=== PATIENT | male | born 2000 | race Caucasian/White ===

== ENCOUNTER 2021-12-29 08:51 | Outpatient (CLI) | payer OTHER, SELFPAY ==
--- NOTE | 2022-01-11 20:37 | WPDSLEEPSTUD ---
Sleep Study Date of Study: 12/29/21 Ordering Provider: Milagros Canela DO Interpreting Physician: Kary Maciel DO Sleep Study Type: Split Polysomnogram Height: 1.91 m Weight: 152.861 kg Body Mass Index: 42.1 Neck Circumference (inches): 20 [place]: 6 Reason for Sleep Study Loud snoring Sleep History The patient is a 21 year old male had a sleep study ordered by his primary care for evaluation of sleep apnea. 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 The patient denies awakening from sleep short of breath. he rarely awakens at night with heartburn, belching cough. Constantly snores loud enough that others complain. He constantly has trouble sleeping when he has a cold. He denies waking up gasping for air throughout the night. He rarely has breathing problems at night observed by himself or others. He rarely sweats excessively at night. He denies having heart palpitations or irregular heartbeats during the night. He occasionally falls asleep during the day but never while driving. He denies sleep paralysis, cataplexy and hypnagogic / hypnopompic hallucinations. He denies having trouble at school or work due to sleepiness. He denies having nightmares. He denies remembering his dreams. He denies having thoughts racing through his mind. He occasionally feels sad or depressed. He frequently has anxiety. He occasionally has muscular tension. He rarely notices parts of his body jerk. He denies kicking during the night. He denies having crawling and aching feelings in his legs as well as leg pain during night he denies grinding his teeth during sleep and awakening with morning jaw pain. He is rarely by pain during the day and never awakened by pain during the. He constantly wakes up feeling stiff in the morning. He constantly wakes up with sore achy muscles. He constantly wakes up with pain in the neck, spine and other joints. He goes to bed at 9:30 p.m.. It takes him 1 hour fall asleep. He wakes up twice throughout the night to use the restroom, get a drink hand showed off electronics. He is able fall back asleep within 30 minutes. He wakes up at 7:30 a.m. weekdays and 9:30 a.m. weekends. he typically gets 8 hours of sleep per night. He will stay in bed for 30 minutes to an hour after waking up the morning. He does not consume any caffeinated beverages within 2 hours of bedtime. He will engage in physical exercise before bedtime. He will watch television before falling asleep. He does take naps in the afternoon or the evening. He will drink 1 caffeinated beverage per day. He will drink an alcoholic beverage on the weekend. He quit smoking cigarettes. He he denies recreational drug use. [facility] Past Medical History Medical History (Updated 01/11/22 @ 21:04 by Kary Maciel DO) JETT (obstructive sleep apnea) Social History Social History Smoking status: Former smoker Tobacco type: cigarettes Second hand tobacco smoke exposure: No Alcohol intake: current Substance use: current Substance use type: marijuana Gender identity (if verbalized by the patient): Male Sexual Orientation (if Verbalized by the Patient): Straight or Heterosexual Spiritual care concerns: No Agree to blood products: Yes Medications Home Medications Medication Instructions Recorded Confirmed Type triamcinolone acetonide 0.1 % 1 applic TOPICAL BID #30 g 09/17/21 12/15/21 Rx topical cream azithromycin 250 mg tablet See Rx Instructions PO .COMPLEX #6 12/15/21 12/15/21 Rx tablet fluticasone propionate 50 2 spray INTRANASAL DAILY #16 g 12/15/21 12/15/21 Rx mcg/actuation nasal spray,suspension [id number] 3.5 4 drp RIGHT EAR Q8H #10 ml 12/24/21 Rx mg-10,000 unit/mL-1 % ear drops,susp Sleep Procedure This test was performed using the [employer] multiple channel system including EOG, EEG, subm
[2022-01-11 21:06] VITALS: BMI 42.1
== END 2021-12-30 07:17 | disposition home or self-care (01) ==
LOC: ANHCSM 08:51
PROVIDERS: PCP Family Medicine; Visit Provider Family Medicine
DX: G47.33 Obstructive sleep apnea (adult) (pediatric) (principal)
CPT/HCPCS: 95811

== ENCOUNTER 2024-01-04 00:02 | Day surgery (SDC) | payer OTHER, SELFPAY ==
[2023-12-20 14:19] VITALS: BMI 41.3
[2024-01-04 07:52] VITALS: BP 141/106; PULSE 80; RESP 18; TEMP 36.2; O2SAT 98
[2024-01-04] MEDS: LACTATED RINGERS 1,000 ML 150 ML IV CONT (08:07)
--- NOTE | 2024-01-04 08:37 | P.PNAN_ITS ---
Anes - Initial Pre Proc Eval Procedure: Operation Date: 01/04/24 09:00 Proposed Procedures p Colonoscopy - Jacobo Kelley MD Date/Time: 01/04/24 08:37 Surgeon: Jacobo Kelley MD Pre Op Diagnosis: fam hx of colon polyps,Hemorrhage of anus and rect Patient Data Age: 23 Gender: M Height: 1.91 m Weight: 163 kg Last Vital Signs Temp 97.1 F L 01/04/24 07:52 Pulse 80 01/04/24 07:52 Resp 18 01/04/24 07:52 BP 141/106 H 01/04/24 07:52 Pulse Ox 98 01/04/24 07:52 O2 Del Method Room Air 01/04/24 07:52 Allergies Allergy/AdvReac Type Severity Reaction Status Date / Time No Known Allergies Allergy Verified 01/04/24 07:51 Home Medications Medication Instructions Recorded Confirmed Type losartan 50 mg-hydrochlorothiazide 1 tablet PO DAILY #90 tabs 07/19/23 01/04/24 Rx 12.5 mg tablet Patient hx anesthesia problems: none Family hx anesthesia problems: none Results Review: All pre-operative results and documents have been reviewed as part of the pre- operative evaluation. [facility] Past Medical History Medical History JETT (obstructive sleep apnea) Screening cholesterol level Family History Family History Father Colon polyp Social History Social History Smoking status: Former smoker Tobacco type: cigarettes Second hand tobacco smoke exposure: No Alcohol intake: current Drinks per week: 5 Substance use: current Substance use type: marijuana Do You Feel Safe in your Home?: Yes Lack of Transportation: No Lack of Food: Never True Current Housing: I Have Housing Concerned About Future Housing: No Difficulty Paying Gas/Electric Bills: No Difficulty Paying for Meds: No Currently Unemployed: No Education: Bachelor's Degree Difficulty w/ Childcare or Family Care: No Living arrangements: with friend(s) Occupation/Education: occupation Gender identity (if verbalized by the patient): Male Sexual Orientation (if Verbalized by the Patient): Straight or Heterosexual Spiritual care concerns: No Agree to blood products: Yes Margarita - Arash Final PreProcedure Day of Procedure 01/04/24 08:37 Patient weight: morbidly obese Heart: regular rate and rhythm Lungs: clear to auscultation Airway: Mallampati scale class II Neurological: alert and oriented Last oral intake: >/= 8 hours ASA classification: III Emergent: no Anesthetic plan: proceed Anesthesia type and monitoring: general GIVS and standard monitoring Results Review: All pre-operative results and documents have been reviewed as part of the pre- operative evaluation. Informed Consent: The patient's anesthetic plan and its attendant risks and benefits were discussed with the patient/family/POA. Questions were solicited and answers provided to the satisfaction of the patient/family/POA.
--- NOTE | 2024-01-04 09:01 | PM.HPGS ---
History of Present Illness History of Present Illness Consent: Risks, benefits, and alternatives have been discussed and questions answered. Patient agrees to proceed with procedure. Chief complaint: Hemorrhage of anus and rect Narrative: Freddie Olivares is a 23 year old male with intermittent hematochezia, never had colonoscopy Review of Systems Review of Systems: All systems reviewed & are unremarkable except as noted in HPI and below PMFSH Past Medical History Medical History JETT (obstructive sleep apnea) Screening cholesterol level Family History Family History Father Colon polyp Social History Social History Smoking status: Former smoker Tobacco type: cigarettes Second hand tobacco smoke exposure: No Alcohol intake: current Drinks per week: 5 Substance use: current Substance use type: marijuana Do You Feel Safe in your Home?: Yes Lack of Transportation: No Lack of Food: Never True Current Housing: I Have Housing Concerned About Future Housing: No Difficulty Paying Gas/Electric Bills: No Difficulty Paying for Meds: No Currently Unemployed: No Education: Bachelor's Degree Difficulty w/ Childcare or Family Care: No Living arrangements: with friend(s) Occupation/Education: occupation Gender identity (if verbalized by the patient): Male Sexual Orientation (if Verbalized by the Patient): Straight or Heterosexual Spiritual care concerns: No Agree to blood products: Yes Meds Home Medications and Allergies Home Medications Medication Instructions Recorded Confirmed Type losartan 50 mg-hydrochlorothiazide 1 tablet PO DAILY #90 tabs 07/19/23 01/04/24 Rx 12.5 mg tablet Allergies Allergy/AdvReac Type Severity Reaction Status Date / Time No Known Allergies Allergy Verified 01/04/24 07:51 Vital Signs Vital Signs - 24 hr 01/04/24 07:52 Temperature 97.1 F L Pulse Rate 80 Respiratory Rate 18 Blood Pressure 141/106 H Pulse Oximetry 98 Oxygen Delivery Room Air Exam Const: General: comfortable and no acute distress HENMT: Face/Nose/Sinus: Normal nares present Eyes: General: appearance normal, both eyes and all related structures Neck: Neck: no JVD Resp: Auscultation: clear to auscultation bilaterally Cardio: Rate: regular rate Rhythm: regular rhythm GI: Inspection: non-distended GI Palp: Yes Soft to palpation Skin: General skin exam: normal color Neuro: General: gait normal Speech: normal speech Extrem: General: normal to inspection Psych: Mental Status: mental status grossly normal Assessment and Plan Assessment and plan (1) BRBPR (bright red blood per rectum): Code(s): K62.5 - Hemorrhage of anus and rectum Status: Acute Assessment and Plan: colonoscopy
[2024-01-04 09:31] VITALS: BP 110/43; PULSE 84; RESP 25; O2SAT 95
[2024-01-04 09:41] VITALS: BP 115/58; PULSE 76; RESP 20; O2SAT 95
[2024-01-04 09:51] VITALS: BP 119/59; PULSE 72; RESP 20; O2SAT 97
== END 2024-01-04 09:59 | disposition home or self-care (01) ==
PROVIDERS: PCP Emergency Medicine; Visit Provider Internal Medicine Gastroenterology
PROC: 0DJD8ZZ Inspection of Lower Intestinal Tract, Via Natural or Artificial Opening Endoscopic (ICD-10-PCS; CPT 45378; principal; 2024-01-04 09:00)
DX: K63.5 Polyp of colon (principal); K64.8 Other hemorrhoids; G47.33 Obstructive sleep apnea (adult) (pediatric); Z87.891 Personal history of nicotine dependence; F12.90 Cannabis use, unspecified, uncomplicated; E66.01 Morbid (severe) obesity due to excess calories; Z68.41 Body mass index [BMI] 40.0-44.9, adult
CPT/HCPCS: 45385; 88305; J1596; J2704; J7120